=== PATIENT | female | born 1955 | race Caucasian/White ===

== ENCOUNTER → 2017-11-05 | Outpatient (CLI) | payer BC ==
[~2017-11-05] MED LIST: ACET-1256 PO; GADAVIST IV PRN
--- NOTE | 2017-11-05 09:56 | DIAGNOSTIC IMAGING REPORT ---
BRAIN COMBO HISTORY: 62 years-old Female CERVICAL DYSTONIA involuntary movements of the head COMPARISON: None available TECHNIQUE: Multiplanar multisequence MRI of the brain was obtained both with and without the use of 4.5 mL Gadavist FINDINGS: No restricted diffusion to suggest acute infarction. Midline structures including the corpus callosum, brainstem, optic chiasm, pituitary and pineal glands are unremarkable on the sagittal T1 sequence. No cerebellar tonsillar herniation. Mild degenerative changes of the imaged upper cervical spine. No acute intracranial hemorrhage, midline shift, abnormal extra-axial collections, hydrocephalus, intracranial mass or abnormal enhancement. There are a few scattered foci of T2/FLAIR prolongation within the periventricular white matter of the cerebral hemispheres bilaterally suggesting chronic microvascular ischemic changes. Major flow voids at the level the skull base appear patent. No mastoid effusion. Minimal ethmoid sinus disease. Orbits are symmetric. Scalp, calvarium and soft tissues are unremarkable. IMPRESSION: 1. No acute intracranial abnormality. No acute infarction or abnormal enhancement. 2. Probable mild chronic microvascular ischemic changes. The above report was generated using voice recognition software. It may contain grammatical, syntax or spelling errors. Electronically signed by: Bebeto Amanda M.D. 11/05/2017 9:55 AM Dictated Date/Time: 11/05/2017 9:50 AM
== END | disposition home or self-care (01) ==
LOC: C.MRIBC 09:03
PROVIDERS: ATTEND Psychiatry & Neurology Neurology
DX: G24.3 Spasmodic torticollis (principal); G25.9 Extrapyramidal and movement disorder, unspecified